=== PATIENT | female | born 1960 | race Two or more races ===

== ENCOUNTER 2017-08-15 15:49 | Emergency (ER) | payer OTHER | END 2017-08-15 18:00 | disposition home or self-care (01) | LOC: ER 15:49 | DX: N81.10 Cystocele, unspecified (principal) | CPT/HCPCS: 99283 ==

== ENCOUNTER → 2017-08-27 | Day surgery (SDC) | payer OTHER ==
[~2017-08-27] MED LIST: LIDOCAINE 2% PF Vial for OR 5 ML VIAL.; PROPOFOL 40 ML IV
[2017-08-27] MEDS: IV RINGERS,LACTATED 1000ML 1,000 ML IV ×2 (09:46)
== END | disposition home or self-care (01) ==
LOC: ENDOS 09:06
DX: Z12.11 Encounter for screening for malignant neoplasm of colon (principal); K64.0 First degree hemorrhoids; K62.1 Rectal polyp; Z80.0 Family history of malignant neoplasm of digestive organs
CPT/HCPCS: 45380; 88305; J2704

== ENCOUNTER → 2017-09-23 | Outpatient (CLI) | payer OTHER | END | disposition home or self-care (01) | LOC: US 10:52 | DX: N81.10 Cystocele, unspecified (principal) | CPT/HCPCS: 76830; 76856 ==

== ENCOUNTER → 2017-10-16 | Outpatient (CLI) | payer OTHER | END | disposition home or self-care (01) | LOC: MAMMO 13:34 | DX: Z12.31 Encounter for screening mammogram for malignant neoplasm of breast (principal) | CPT/HCPCS: 77063; 77067 ==

== ENCOUNTER → 2018-01-11 | Outpatient (CLI) | payer OTHER ==
[2018-01-11 14:24] LABS: ADD MAN DIFF? NO
[2018-01-11 14:26] LABS: BASO # 0.1 x10^3/uL (0.0-0.2); BASO % 1 % (0-3); EOS # 0.2 x10^3/uL (0.0-0.7); EOS % 2 % (0-3); HEMOGLOBIN 11.9 g/dL (12.0-15.5); LYMPH # 1.7 x10^3/uL (1.0-4.8); LYMPH % 22 % (24-48); MEAN CORPUSCULAR HEMOGLOBIN 26 pg (25-35); MEAN CORPUSCULAR HGB CONC 34 g/dL (31-37); MEAN CORPUSCULAR VOLUME 78 fL (79-100); MONO # 0.7 x10^3/uL (0.0-1.1); MONO % 8 % (0-9); NEUT # 5.5 x10^3uL (1.8-7.7); NEUT % 67 % (31-73); PLATELET COUNT 269 x10^3/uL (140-400); RED BLOOD COUNT 4.51 x10^6/uL (3.50-5.40); RED CELL DISTRIBUTION WIDTH 14.8 % (11.5-14.5); WHITE BLOOD COUNT 8.1 x10^3/uL (4.0-11.0)
== END | disposition home or self-care (01) ==
LOC: SURGPAT 13:17
DX: N81.2 Incomplete uterovaginal prolapse (principal)
CPT/HCPCS: 36415; 85025; 93005

== ENCOUNTER 2018-01-14 06:31 | Observation (INO) | payer OTHER ==
[~2018-01-14 06:31] MED LIST changes: -LIDOCAINE 2% PF Vial for OR 5 ML VIAL.; +METHYLENE BLUE 1% 10 ML VIAL.; -PROPOFOL 40 ML IV; +ceFAZolin 2GM PREMIX 2 GM/50 ML BAG IV
[2018-01-14] MEDS ORDERED: ONDANSETRON PF 4 MG/2 ML VIAL. IV ×2 (07:00→09:45)
[2018-01-14] MEDS ORDERED: LIDOCAINE 1% PF 2 ML VIAL. ID (07:00)
[2018-01-14] MEDS ORDERED: PROCHLORPERAZINE 10 MG/2 ML VIAL. IV ×2 (07:00→09:45)
[2018-01-14] MEDS ORDERED: MORPHINE SULFATE 2 MG/ML DISP.SYRIN. IV (07:00)
[2018-01-14] MEDS: IV RINGERS,LACTATED 1000ML 1,000 ML IV (07:08)
[2018-01-14] MEDS ORDERED: DEXAMETHASONE SOD PHOS 20 MG/5 ML VIAL. (08:01)
[2018-01-14] MEDS ORDERED: ONDANSETRON PF 4 MG/2 ML VIAL. (08:01)
[2018-01-14] MEDS ORDERED: KETOROLAC 30 MG/ML INJ FOR OR. INJ (08:01)
[2018-01-14] MEDS ORDERED: SEVOFLURANE 61 TO 120 MINUTES. IH (08:01)
[2018-01-14] MEDS ORDERED: LIDOCAINE 2% PF Vial for OR 5 ML VIAL. (08:01)
[2018-01-14] MEDS ORDERED: PROPOFOL 20 ML IV (08:01)
[2018-01-14] MEDS ORDERED: fentaNYL PF VIAL 100 MCG/2 ML VIAL (08:20)
[2018-01-14] MEDS: LIDOCAINE 1%/EPI 1:100,000 20 ML VIAL. INJ (08:27)
[2018-01-14] MEDS: ESTROGENS, CONJ VAGINAL CREAM 30GM TUBE. (09:20)
[2018-01-14] MEDS ORDERED: 0.9 % SODIUM CHLORIDE 10 ML DISP.SYRIN. IV (09:45)
[2018-01-14] MEDS ORDERED: ZOLPIDEM 5 MG TABLET. PO (09:45)
[2018-01-14] MEDS ORDERED: CALCIUM CARBONATE 500 MG TAB.CHEW PO (09:45)
[2018-01-14] MEDS ORDERED: diphenhydrAMINE 50 MG/ML VIAL IV (09:45)
[2018-01-14] MEDS ORDERED: DEXTROSE 50% 25 GM / 50ML DISP.SYRIN. IV (09:45)
[2018-01-14] MEDS ORDERED: diphenhydrAMINE HCL 25 MG CAPSULE PO (09:45)
[2018-01-14] MEDS: fentaNYL PF VIAL 100 MCG/2 ML VIAL IV ×5 (09:54→10:30)
[2018-01-14] MEDS: KETOROLAC 30 MG/ML INJ. IV (11:42)
[2018-01-14] MEDS: GABAPENTIN 300 MG CAPSULE. PO ×2 (14:00→22:11)
[2018-01-14] MEDS: oxyCODONE/APAP 5/325 1 TAB TABLET PO ×2 (16:50→22:31)
[2018-01-15 04:43] LABS: ADD MAN DIFF? NO
[2018-01-15 04:56] LABS: BASO % 0 % (0-3); EOS % 0 % (0-3); HEMATOCRIT 31.5 % (36.0-47.0); HEMOGLOBIN 10.8 g/dL (12.0-15.5); LYMPH # 1.5 x10^3/uL (1.0-4.8); LYMPH % 15 % (24-48); MEAN CORPUSCULAR HEMOGLOBIN 27 pg (25-35); MEAN CORPUSCULAR HGB CONC 34 g/dL (31-37); MEAN CORPUSCULAR VOLUME 78 fL (79-100); MONO # 0.9 x10^3/uL (0.0-1.1); MONO % 9 % (0-9); NEUT # 7.6 x10^3uL (1.8-7.7); NEUT % 75 % (31-73); PLATELET COUNT 240 x10^3/uL (140-400); RED BLOOD COUNT 4.02 x10^6/uL (3.50-5.40); RED CELL DISTRIBUTION WIDTH 15.2 % (11.5-14.5); WHITE BLOOD COUNT 10.1 x10^3/uL (4.0-11.0)
[2018-01-15] MEDS: SIMETHICONE 80 MG TAB.CHEW PO (08:49)
[2018-01-15] MEDS: oxyCODONE/APAP 5/325 1 TAB TABLET PO ×3 (08:50→15:29)
[2018-01-15] MEDS: GABAPENTIN 300 MG CAPSULE. PO (08:50)
== END 2018-01-15 18:12 | disposition home or self-care (01) ==
LOC: SURG 06:31 → 3 NORTH 09:38
DX: N81.2 Incomplete uterovaginal prolapse (principal)
CPT/HCPCS: 36415; 85025; 86850; 86900; 86901; 88307; 96374; A7015; G0378; G0379; J0690; J1100; J1885; J2001; J2405; J2704; J3010; J3490; J7120; Q9968

== ENCOUNTER → 2021-06-13 | Outpatient (CLI) | payer OTHER ==
[2018-01-15 15:32] VITALS: BP 115/63
[~2021-06-13] MED LIST changes: +ACET500T68 PO; +DOCU-109 PO; +IBUP-1060 PO; -METHYLENE BLUE 1% 10 ML VIAL.; +OXYC1TAB7 PO; -ceFAZolin 2GM PREMIX 2 GM/50 ML BAG IV
--- NOTE | 2021-06-13 13:35 | RAD ---
BILATERAL DIGITAL SCREENING 2-D AND 3-D MAMMOGRAM INDICATION: Routine screening. COMPARISON: October 16, 2017 and May 02, 2014 Interpretation was made using CAD. FINDINGS: Breast Density: There are scattered areas of fibroglandular density. RIGHT BREAST: No suspicious masses, calcifications or areas of architectural distortion are seen. LEFT BREAST: No suspicious masses, calcifications or areas of architectural distortion are seen. IMPRESSION: 1. No imaging evidence of malignancy. ASSESSMENT: BI-RADS 1. Negative. RECOMMENDATION: Routine annual screening mammogram. The facility will notify the patient of the results via mail. Patient information will be entered int o the mammography reminder system with a target recall date for the next mammogram. A reminder letter will be generated by the facility. Electronically signed by: Kim Coyne MD (06/13/2021 1:33 PM) [id number]
== END ==
LOC: MAMMO 10:54
PROVIDERS: ATTEND Obstetrics & Gynecology
DX: Z12.31 Encounter for screening mammogram for malignant neoplasm of breast (principal)
CPT/HCPCS: 77063; 77067